=== PATIENT | female | born 1985 | race Caucasian/White ===

== ENCOUNTER 2017-01-30 07:28 | Emergency (ER) | payer OTHER ==
[~2017-01-30 07:28] MED LIST: KLONOPIN TAB 00.5 MG PO; LAMICTAL25 MG PO; LEXAPRO10 MG PO; LISINOPRIL20 MG PO; PROPRANOLOL HCL10 MG PO; VISTARIL25 MG PO
[2017-01-30 08:44] LABS: HEMOGLOBIN 12.5 gm/dl (12.3-15.3); RED BLOOD COUNT 4.31 M/UL (4.00-5.10); WHITE BLOOD COUNT 7.7 K/UL (4.5-11.0)
[2017-01-30 08:48] LABS: BUN/CREATININE RATIO 20 (0-10)
== END 2017-01-30 10:25 | disposition home or self-care (01) ==
LOC: ER1 07:28
PROVIDERS: Specialist/Technologist Athletic Trainer
DX: R20.2 Paresthesia of skin (principal); E34.8 Other specified endocrine disorders; R82.71 Bacteriuria; F17.200 Nicotine dependence, unspecified, uncomplicated; F90.9 Attention-deficit hyperactivity disorder, unspecified type; I10 Essential (primary) hypertension; F31.9 Bipolar disorder, unspecified; Z88.8 Allergy status to other drugs, medicaments and biological substances; Z79.899 Other long term (current) drug therapy
CPT/HCPCS: 36415; 70450; 71010; 72125; 80053; 81001; 84703; 85025; 96360; 99284